=== PATIENT | male | born 1965 | race Caucasian/White ===

== ENCOUNTER 2023-04-26 10:27 | Emergency (ER) | payer OTHER ==
[2023-04-26 10:35] VITALS: BP 160/97; PULSE 94; RESP 18; TEMP 98; BMI 27.2
[2023-04-26] MEDS ORDERED: AMOX TR/POT CLAV 875MG/125MG TABLETS (FP) PO ONE (10:44)
[2023-04-26] MEDS ORDERED: AMOX TR/POT CLAV 875MG/125MG TABLETS (FP) ONE (10:46)
== END 2023-04-26 11:05 | disposition home or self-care (01) ==
LOC: FER 10:27
DX: S71.151A Open bite, right thigh, initial encounter (principal); W54.0XXA Bitten by dog, initial encounter; Y93.01 Activity, walking, marching and hiking
CPT/HCPCS: 99283-25